=== PATIENT | male | born 1955 | race Two or more races ===

== ENCOUNTER 2018-11-10 13:06 | Outpatient (CLI) | payer SELFPAY | END 2018-11-10 23:59 | disposition home or self-care (01) | LOC: RAD 13:06 | PROVIDERS: ATTEND Internal Medicine Hematology & Oncology | DX: Z45.2 Encounter for adjustment and management of vascular access device (principal); Z85.46 Personal history of malignant neoplasm of prostate | CPT/HCPCS: 36573; C1751 ==